=== PATIENT | male | born 1990 | race Caucasian/White ===

== ENCOUNTER 2016-07-19 16:55 | Emergency (ER) | payer OTHER | END 2016-07-19 18:28 | disposition home or self-care (01) | DX: S91.202A Unspecified open wound of left great toe with damage to nail, initial encounter (principal); S90.212A Contusion of left great toe with damage to nail, initial encounter; F17.210 Nicotine dependence, cigarettes, uncomplicated; Z23 Encounter for immunization; W20.8XXA Other cause of strike by thrown, projected or falling object, initial encounter; Y92.219 Unspecified school as the place of occurrence of the external cause ==